=== PATIENT | female | born 1955 | race Caucasian/White ===

== ENCOUNTER 2018-10-01 13:43 | Observation (INO) | payer OTHER ==
[2018-10-01] MEDS: METOCLOPRAMIDE INJ 10MG/2ML VIAL (J2765) IV (14:26)
[2018-10-01] MEDS: MORPHINE 4 MG/ML 1ML VIAL/SYRINGE (J2270) IV ×2 (14:27→14:55)
[2018-10-01] MEDS: NS 1,000 ML IV ×2 (14:27→15:30)
[2018-10-01 14:40] LABS: BASO % 0.5 % (0.0-1.0); EOS # 0.1 10^3/uL (0.0-0.50); EOS % 1.6 % (0.0-3.0); HEMATOCRIT 45.5 % (36.0-47.0); HEMOGLOBIN 15.5 g/dl (12.0-15.5); IMMATURE GRANULOCYTE % 0.2 % (0-3.0); LYMPH # 2.3 10^3/uL (1.5-4.5); LYMPH % 35.2 % (24.0-44.0); MEAN CORPUSCULAR HEMOGLOBIN 32.5 pg (27.0-33.0); MEAN CORPUSCULAR HGB CONC 34.1 g/dl (32.0-36.5); MEAN CORPUSCULAR VOLUME 95.4 fl (80.0-96.0); MONO # 0.3 10^3/uL (0.0-0.8); MONO % 5.3 % (0.0-5.0); NEUTROPHILS # 3.7 10^3/uL (1.8-7.7); NEUTROPHILS % 57.2 % (36.0-66.0); PLATELET COUNT, AUTOMATED 190 10^3/uL (150-450); RED BLOOD COUNT 4.77 10^6/uL (4.00-5.40); RED CELL DISTRIBUTION WIDTH 12.9 % (11.5-14.5); WHITE BLOOD COUNT 6.5 10^3/uL (4.0-10.0)
[2018-10-01 14:51] LABS: INR 1.11; PROTHROMBIN TIME 14.5 SECONDS (12.1-14.4)
[2018-10-01 15:20] LABS: ALBUMIN/GLOBULIN RATIO 1.29 (1.00-1.93); ALKALINE PHOSPHATASE 194 U/L (45-117); ALT/SGPT 57 U/L (12-78); ANION GAP 11 MEQ/L (8-16); AST/SGOT 51 U/L (7-37); BILIRUBIN,DIRECT 0.2 MG/DL (0.0-0.2); BILIRUBIN,TOTAL 0.6 MG/DL (0.2-1.0); BLOOD UREA NITROGEN 9 MG/DL (7-18); CALCIUM LEVEL 9.3 MG/DL (8.8-10.2); CARBON DIOXIDE LEVEL 24 MEQ/L (21-32); CHLORIDE LEVEL 107 MEQ/L (98-107); CREATININE FOR GFR 0.99 MG/DL (0.55-1.30); GLOMERULAR FILTRATION RATE > 60.0 (>45); GLUCOSE, FASTING 144 MG/DL (70-100); LIPASE 199 U/L (73-393); POTASSIUM SERUM 3.7 MEQ/L (3.5-5.1); SODIUM LEVEL 142 MEQ/L (136-145); TOTAL PROTEIN 7.1 GM/DL (6.4-8.2)
[2018-10-01] MEDS: GASTROGRAFIN SOLUTION 30ML PO ×2 (15:22→15:53)
[2018-10-01 15:26] LABS: LACTIC ACID SEPSIS PROTOCOL 2.7 MMOL/L (0.4-2.0)
[2018-10-01] MEDS: ONDANSETRON 4MG/2ML VIAL (J2405) IV (15:27)
[2018-10-01] MEDS ORDERED: ISOVUE-370 76% 100ML VIAL (Q9967) As Ordered (15:33)
[2018-10-01] MEDS: HYDROMORPHONE HCL 0.5 MG/ 0.5 ML SYRINGE (J1170 PER 1) IV (16:24)
[2018-10-01] MEDS ORDERED: ONDANSETRON 4MG/2ML VIAL (J2405) IV (21:00)
[2018-10-01] MEDS ORDERED: MORPHINE 4 MG/ML 1ML VIAL/SYRINGE (J2270) IV ×2 (21:00)
[2018-10-01] MEDS ORDERED: METOCLOPRAMIDE INJ 10MG/2ML VIAL (J2765) IV (21:00)
[2018-10-01] MEDS: PANTOPRAZOLE 40MG INJ (PROTONIX) (C9113) IV (21:33)
[2018-10-01] MEDS: LR 1,000 ML IV (21:33)
[2018-10-01] MEDS: KETOROLAC 30 MG/ML VIAL (J1885) IV (23:10)
[2018-10-02] MEDS: KETOROLAC 30 MG/ML VIAL (J1885) IV (06:30)
[2018-10-02] MEDS: LR 1,000 ML IV (08:36)
[2018-10-02] MEDS: PANTOPRAZOLE 40MG INJ (PROTONIX) (C9113) IV (08:36)
[2018-10-02] MEDS: ACETAMINOPHEN TAB 650MG DOSE (2X325MG) PO (15:27)
== END 2018-10-02 20:00 | disposition home or self-care (01) ==
LOC: M ED 13:43 → M ED INP 20:50 → M MSPAV 22:15
DX: K91.858 Other complications of intestinal pouch (principal); Z98.84 Bariatric surgery status; J45.909 Unspecified asthma, uncomplicated; E03.9 Hypothyroidism, unspecified; F32.9 Major depressive disorder, single episode, unspecified
CPT/HCPCS: C9113

== ENCOUNTER 2019-01-13 12:58 | Emergency (ER) | payer OTHER ==
[~2019-01-13] VITALS: Ht 165.1 cm; Wt 85.0 kg
[~2019-01-13 12:58] MED LIST: ADVA230A INH; ALLE1TAB23 PO; CALTTAB6 PO; GABA-845 PO; LEVO100T5 PO; LEXA1TAB PO; MILK120011 PO; MISO100T22 PO; MONT10TA2 PO; PANT40TA3 PO; PRAV40TA2 PO; SUCR1SS PO; VITA-193 PO; VITA100066 PO; VITMTA PO; [UNRECOGNIZED DRUG - CODE] PO
[2019-01-13] MEDS ORDERED: NS 1,000 ML IV ONE (14:00)
[2019-01-13] MEDS ORDERED: PANTOPRAZOLE 40MG INJ (PROTONIX) (C9113) IV ONE (14:00)
[2019-01-13 14:24] LABS: BASO % 0.4 % (0.0-1.0); EOS # 0.1 10^3/uL (0.0-0.50); EOS % 1.6 % (0.0-3.0); HEMOGLOBIN 13.8 g/dl (12.0-15.5); LYMPH # 2.7 10^3/uL (1.5-4.5); LYMPH % 40.6 % (24.0-44.0); MEAN CORPUSCULAR HEMOGLOBIN 31.9 pg (27.0-33.0); MEAN CORPUSCULAR HGB CONC 32.9 g/dl (32.0-36.5); MEAN CORPUSCULAR VOLUME 97.2 fl (80.0-96.0); MONO # 0.5 10^3/uL (0.0-0.8); MONO % 6.7 % (0.0-5.0); NEUTROPHILS # 3.4 10^3/uL (1.8-7.7); NEUTROPHILS % 50.6 % (36.0-66.0); PLATELET COUNT, AUTOMATED 163 10^3/uL (150-450); RED BLOOD COUNT 4.32 10^6/uL (4.00-5.40); WHITE BLOOD COUNT 6.7 10^3/uL (4.0-10.0)
[2019-01-13 14:48] LABS: INR 1.22; PARTIAL THROMBOPLASTIN TIME 33.7 SECONDS (25.4-37.6); PROTHROMBIN TIME 15.6 SECONDS (12.1-14.4)
[2019-01-13 15:03] LABS: ALBUMIN 3.6 GM/DL (3.2-5.2); ALT/SGPT 65 U/L (12-78); BILIRUBIN,DIRECT 0.2 MG/DL (0.0-0.2); BILIRUBIN,TOTAL 0.5 MG/DL (0.2-1.0); BLOOD UREA NITROGEN 8 MG/DL (7-18); CALCIUM LEVEL 7.9 MG/DL (8.8-10.2); CARBON DIOXIDE LEVEL 28 MEQ/L (21-32); CHLORIDE LEVEL 108 MEQ/L (98-107); CK-MB VALUE MASS < 1.0 NG/ML (<3.6); CPK CREATINE PHOSPHOKINASE 58 U/L (26-192); CREATININE FOR GFR 0.88 MG/DL (0.55-1.30); GLOMERULAR FILTRATION RATE > 60.0 (>45); GLUCOSE, FASTING 89 MG/DL (70-100); LIPASE 196 U/L (73-393); MB/CK RELATIVE INDEX 1.72 (< OR =4); POTASSIUM SERUM 3.5 MEQ/L (3.5-5.1); SODIUM LEVEL 142 MEQ/L (136-145); TOTAL PROTEIN 6.8 GM/DL (6.4-8.2); TROPONIN I < 0.02 NG/ML (< 0.10)
--- NOTE | 2019-01-13 15:09 | REP ---
CT of the abdomen pelvis without IV or bowel contrast: Comparison is 10/01/2018. The visualized lung pang are unremarkable. The unenhanced hepatic parenchyma is homogeneous. There are surgical clips in the gallbladder fossa. There are multiple surgical clips in the upper abdomen compatible with the history of bariatric surgery. There is wall thickening of a transversely oriented loop of small bowel in the mid upper abdomen without evidence of luminal distension or obstruction. This is nonspecific and could represent ischemia or inflammation. However, there is no inflammatory change in the adjacent mesentery. There is no other bowel distension or obstruction. There is no pneumoperitoneum. There is no ascites. The pancreas and spleen are unremarkable. The unenhanced adrenals and kidneys are unremarkable. The abdominal aorta is unremarkable. Pelvis: There are occasional diverticula in the descending colon and sigmoid colon. There is no CT evidence of acute diverticulitis. The terminal ileum is unremarkable. The appendix is not identified, however there is no pericecal inflammation or abscess. There is a hysterectomy. Vaginal cuff and adnexa are unremarkable. The bladder is unremarkable. Impression: There is a single loop of transversely oriented small bowel in the midline of the upper abdomen demonstrating wall thickening but no luminal distension or obstruction. This is nonspecific but could represent ischemia or inflammation. There are multiple surgical clips in the upper abdomen compatible with the history of bariatric surgery. There is no bowel obstruction. There is no ascites. No focal fluid collections to suggest abscess. No pneumoperitoneum. The visualized lower lung pang are clear. Electronically Signed by Kamran Love MD 01/13/2019 03:00 P
[2019-01-13] MEDS ORDERED: GI COCKTAIL 50ML BTL(HYOSCYAMINE/MAALOX/LIDOCAINE VISCOUS)(1:3:1) PO ONE (15:45)
[2019-01-13 16:33] VITALS: BP 158/84
--- NOTE | 2019-01-13 20:39 | ECGEPIP ---
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
== END 2019-01-13 16:34 | disposition home or self-care (01) ==
LOC: M ED 12:58
DX: K29.00 Acute gastritis without bleeding (principal); I10 Essential (primary) hypertension; J45.909 Unspecified asthma, uncomplicated; E03.9 Hypothyroidism, unspecified; Z79.899 Other long term (current) drug therapy; Z79.890 Hormone replacement therapy
CPT/HCPCS: 36415; 74176; 80048; 80076; 82550; 82553; 83605; 83690; 84484; 85025; 85610; 85730; 93005; 96361; 96374; 99284; C9113

== ENCOUNTER → 2021-05-08 | Outpatient (CLI) | payer MEDICARE, OTHER ==
[~2021-05-08] MED LIST changes: +GABA-283 PO; -GABA-845 PO; +MONT10TA10 PO; -MONT10TA2 PO; +PANT40TA29 PO; -PANT40TA3 PO; -VITA-193 PO; +VITA500T37 PO
--- NOTE | 2021-05-08 12:41 | REP ---
INDICATION: R KNEE OSTEOARTHRITIS-LAB AND EKG 1ST COMPARISON: 10/01/2018 TECHNIQUE: PA and lateral. FINDINGS: The mediastinum and cardiac silhouette are normal. The lung pang are clear and without acute consolidation, effusion, or pneumothorax. The skeletal structures are intact and normal. IMPRESSION: No acute cardiopulmonary process. <Electronically signed by Elkin Washington > 05/08/21 [id number]
[2021-05-08 13:10] LABS: HEMATOCRIT 39.3 % (36.0-47.0); MEAN CORPUSCULAR HEMOGLOBIN 30.7 pg (27.0-33.0); MEAN CORPUSCULAR HGB CONC 33.1 g/dl (32.0-36.5); MEAN CORPUSCULAR VOLUME 92.9 fl (80.0-96.0); PLATELET COUNT, AUTOMATED 207 10^3/uL (150-450); RED BLOOD COUNT 4.23 10^6/uL (4.00-5.40); WHITE BLOOD COUNT 4.9 10^3/uL (4.0-10.0)
[2021-05-08 13:20] LABS: INR 1.09; PROTHROMBIN TIME 14.3 SECONDS (12.5-14.3)
[2021-05-08 13:38] LABS: ERYTHROCYTE SEDIMENTATION RATE 24 mm/hr (0-30)
[2021-05-08 13:41] LABS: ALBUMIN 3.5 GM/DL (3.2-5.2); ALT/SGPT 31 U/L (12-78); BILIRUBIN,TOTAL 0.5 MG/DL (0.2-1.0); BLOOD UREA NITROGEN 10 MG/DL (7-18); CALCIUM LEVEL 8.8 MG/DL (8.8-10.2); CARBON DIOXIDE LEVEL 24 MEQ/L (21-32); CHLORIDE LEVEL 108 MEQ/L (98-107); CREATININE FOR GFR 0.83 MG/DL (0.55-1.30); GLOMERULAR FILTRATION RATE > 60.0 (>45); GLUCOSE, FASTING 84 MG/DL (70-100); POTASSIUM SERUM 4.4 MEQ/L (3.5-5.1); SODIUM LEVEL 141 MEQ/L (136-145); TOTAL PROTEIN 6.7 GM/DL (6.4-8.2)
--- NOTE | 2021-05-08 17:40 | ECGEPIP ---
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 Somewhat slow precordial R wave progression with persistent S waves V5 and V6; b body habitus versus pulmonary disease. Inferoapical T wave abnormalities More prominent than voltage but no other significant change from 01/13/19 Electronically Signed on 05-08-2021 17:40:48 EDT by Mukseh Juares
== END ==
LOC: M LAB 11:46
PROVIDERS: ATTEND Orthopaedic Surgery
DX: M17.11 Unilateral primary osteoarthritis, right knee (principal); Z01.818 Encounter for other preprocedural examination; I42.2 Other hypertrophic cardiomyopathy

== ENCOUNTER → 2021-07-04 | Outpatient (CLI) | payer MEDICARE, OTHER ==
--- NOTE | 2021-07-04 10:56 | REP ---
INDICATION: RT LEG PAIN, R/O DVT. COMPARISON: None. TECHNIQUE: Right {lower extremity duplex venous scanning is performed from the groin to the ankle level. FINDINGS: The deep veins are anechoic and fully compressible from the groin to the popliteal fossa in the right lower extremity. Color flow imaging is homogeneous. Spectral Doppler interrogation demonstrates intact respiratory variation in flow and normal manual augmentation of flow. There is no evidence of deep vein thrombosis above the knee. There is a Monzon's cyst in the right popliteal soft tissues. It measures 6.4 x 5.1 x 3.0 cm. There is no evidence of DVT in the visualized calf veins. Doppler interrogation of the contralateral common femoral vein shows normal symmetric respiratory phasicity. IMPRESSION: No evidence of DVT in the right lower extremity femoropopliteal veins. No DVT in the visible portions of the calf veins. There is a Monzon's cyst in the popliteal fossa on the right with septations. This measures 6.4 x 5.1 x 3.0 cm. <Electronically signed by Otilio Guajardo > 07/04/21 [id number]
== END ==
LOC: M RAD 10:06
PROVIDERS: ATTEND Orthopaedic Surgery
DX: M71.21 Synovial cyst of popliteal space [Baker], right knee (principal); M79.661 Pain in right lower leg

== ENCOUNTER 2022-02-27 23:14 | Emergency (ER) | payer MEDICARE, OTHER ==
[~2022-02-27] VITALS: Ht 162.6 cm; Wt 103.2 kg
[~2022-02-27 23:14] MED LIST changes: -MONT10TA10 PO; +MONT10TA97 PO
[2022-02-28 00:20] LABS: BASO % 0.2 % (0.0-1.0); EOS % 0.2 % (0.0-3.0); HEMOGLOBIN 13.6 g/dl (12.0-15.5); LYMPH # 1.3 10^3/uL (1.5-5.0); LYMPH % 8.1 % (24.0-44.0); MEAN CORPUSCULAR HGB CONC 33.2 g/dl (32.0-36.5); MEAN CORPUSCULAR VOLUME 99.5 fl (80.0-96.0); MONO # 1.5 10^3/uL (0.0-0.8); NEUTROPHILS # 12.5 10^3/uL (1.5-8.5); NEUTROPHILS % 81.1 % (36.0-66.0); PLATELET COUNT, AUTOMATED 212 10^3/uL (150-450); RED BLOOD COUNT 4.12 10^6/uL (4.00-5.40); WHITE BLOOD COUNT 15.4 10^3/uL (4.0-10.0)
[2022-02-28 00:38] LABS: ALBUMIN 3.3 GM/DL (3.2-5.2); BILIRUBIN,DIRECT 0.2 MG/DL (0.0-0.2); BILIRUBIN,TOTAL 0.7 MG/DL (0.2-1.0); CREATININE FOR GFR 1.17 MG/DL (0.55-1.30); GLOMERULAR FILTRATION RATE 49.3 (>45); POTASSIUM SERUM 3.7 MEQ/L (3.5-5.1); TOTAL PROTEIN 6.3 GM/DL (6.4-8.2)
[2022-02-28] MEDS ORDERED: VITA100093 PO (02:03)
[2022-02-28] MEDS ORDERED: MILKSUS3 PO (02:03)
[2022-02-28] MEDS ORDERED: FLON1SPR (02:03)
[2022-02-28] MEDS ORDERED: HOME MED LIST COMPLETE! XX SCH (02:05)
[2022-02-28 02:45] VITALS: BP 127/74
[2022-02-28] MEDS ORDERED: NIRMATRELVIR/RITONAVIR CO-PACK (EMERGENCY USE AUTH) PO SCH ×2 (09:00)
== END 2022-02-28 03:51 | disposition home or self-care (01) ==
LOC: M ED 23:14 → EDBD 23:14 → M ED 02-28 03:51
DX: R53.1 Weakness (principal); U07.1 COVID-19; J45.909 Unspecified asthma, uncomplicated; E03.9 Hypothyroidism, unspecified; E78.5 Hyperlipidemia, unspecified; E66.8 Other obesity; F33.9 Major depressive disorder, recurrent, unspecified; Z79.899 Other long term (current) drug therapy

== ENCOUNTER 2022-12-08 12:36 | Emergency (ER) | payer MEDICARE, OTHER ==
[~2022-12-08] VITALS: Ht 165.1 cm; Wt 109.1 kg
[~2022-12-08 12:36] MED LIST changes: +FLON1SPR; +MILKSUS3 PO; +VITA100093 PO
[2022-12-08] MEDS ORDERED: KETOROLAC 30 MG/ML 1ML VIAL IM ONE (13:45)
[2022-12-08] MEDS ORDERED: TRAM50TA2 PO (14:55)
[2022-12-08 15:29] VITALS: BP 154/98
== END 2022-12-08 15:36 | disposition home or self-care (01) ==
LOC: M ED 12:36
DX: M51.37 Other intervertebral disc degeneration, lumbosacral region (principal); M54.41 Lumbago with sciatica, right side; Z79.890 Hormone replacement therapy; Z79.899 Other long term (current) drug therapy
CPT/HCPCS: 96372; 99283; J1885

== ENCOUNTER 2024-07-05 06:18 | Day surgery (SDC) | payer MEDICARE, OTHER ==
[~2024-07-05] VITALS: Ht 167.6 cm; Wt 111.3 kg
[~2024-07-05 06:18] MED LIST changes: -ALLE1TAB23 PO; +FEXO-63 PO; +FLUT12HF3; -GABA-283 PO; +GABA-284 PO; -MISO100T22 PO; +MISO100T32 PO; +MULTTAB61 PO; +TRAM50TA2 PO
[2024-07-05] MEDS: TETRACAINE 0.5% OPHTH SOLN 4ML OD SCH (06:52)
[2024-07-05] MEDS: PHENYLEPHRINE 2.5% OPHTH SOL 2ML OD SCH (06:52)
[2024-07-05] MEDS: FLURBIPROFEN 0.03% OPHTH SOLN 2.5 ML OD SCH (06:52)
[2024-07-05] MEDS: ATROPINE SULFATE 1% OPHTH SOLN 2ML BTL OD SCH (06:52)
[2024-07-05] MEDS ORDERED: LR 1,000 ML IV SCH ×2 (07:00→07:05)
[2024-07-05] MEDS ORDERED: MIDAZOLAM INJ 2MG/2ML VIAL As Ordered ONE (07:16)
[2024-07-05] MEDS ORDERED: fentaNYL 100 MCG/2 ML INJECTION As Ordered ONE (07:16)
[2024-07-05] MEDS: LIDOCAINE 1% SDV 5ML VIAL As Ordered ONE (07:49)
[2024-07-05] MEDS: CEFUROXIME 1MG/0.1ML INTRACAMERAL INJ As Ordered ONE (07:51)
[2024-07-05 08:10] VITALS: BP 167/92; TEMP 97.6; O2SAT 95
== END 2024-07-05 08:28 | disposition home or self-care (01) ==
LOC: M SDC 06:18
PROVIDERS: ATTEND Ophthalmology
DX: H25.11 Age-related nuclear cataract, right eye (principal); Z79.899 Other long term (current) drug therapy
CPT/HCPCS: 66984; J0697; J2250; J3010; V2632

== ENCOUNTER 2024-08-30 06:09 | Day surgery (SDC) | payer MEDICARE, OTHER ==
[~2024-08-30] VITALS: Ht 162.6 cm; Wt 110.9 kg
[2024-08-30] MEDS: PHENYLEPHRINE 2.5% OPHTH SOL 2ML OS SCH (06:48)
[2024-08-30] MEDS: FLURBIPROFEN 0.03% OPHTH SOLN 2.5 ML OS SCH (06:48)
[2024-08-30] MEDS: ATROPINE SULFATE 1% OPHTH SOLN 2ML BTL OS SCH (06:48)
[2024-08-30] MEDS: TETRACAINE 0.5% OPHTH SOLN 4ML OS SCH (06:48)
[2024-08-30] MEDS ORDERED: fentaNYL 100 MCG/2 ML INJECTION As Ordered ONE (07:00)
[2024-08-30] MEDS ORDERED: MIDAZOLAM INJ 2MG/2ML VIAL As Ordered ONE (07:00)
[2024-08-30] MEDS ORDERED: LR 1,000 ML IV SCH (07:00)
[2024-08-30] MEDS: LIDOCAINE 1% SDV 5ML VIAL As Ordered ONE (08:25)
[2024-08-30] MEDS: CEFUROXIME 1MG/0.1ML INTRACAMERAL INJ As Ordered ONE (08:26)
[2024-08-30 08:34] VITALS: BP 178/88; TEMP 97.2; O2SAT 96
== END 2024-08-30 08:47 | disposition home or self-care (01) ==
LOC: M SDC 06:09
PROVIDERS: ATTEND Ophthalmology
DX: H25.12 Age-related nuclear cataract, left eye (principal); Z68.44 Body mass index [BMI] 60.0-69.9, adult; Z79.899 Other long term (current) drug therapy; Z98.41 Cataract extraction status, right eye
CPT/HCPCS: 66984; J0697; J2250; J3010; V2632